=== PATIENT | male | born 1990 | race Caucasian/White ===

== ENCOUNTER 2017-12-19 05:25 | Observation (INO) ==
[2017-12-19] MEDS ORDERED: MORPHINE SUL Oral CONC 10 MG/0.5 ML ORAL.SYG SL PRN (07:52)
[2017-12-19] MEDS ORDERED: Ondansetron 4 MG/2 ML VIAL IVP PRN (07:52)
[2017-12-19] MEDS: Pantoprazole 40 MG VIAL IVP SCH (09:06)
[2017-12-19] MEDS: *HR* LORazepam 2 MG/ML VIAL IVP PRN ×2 (09:06→17:31)
[2017-12-19] MEDS: 0.9 % Sodium Chloride 1,000 ML IVC SCH ×3 (09:06→20:51)
[2017-12-19] MEDS: Loratadine 10 MG TABLET PO SCH (09:28)
[2017-12-19] MEDS: Albuterol 2.5 MG/3 ML NEBULIZER IH PRN (09:43)
--- NOTE | 2017-12-19 09:50 | General Surg History&Physical ---
<CesarEnio R - Last Filed: 12/19/17 15:11> Date of Encounter: 12/19/17 Time of Encounter: 07:40 Assessment and Plan (1) Cholelithiasis Current Visit: Yes Status: Acute The assessment and plan as outlined above was discussed with the patient and/or family members who expressed understanding and agreement. All questions were answered. CT shows minimal pericholecystic fat stranding and suspected gallstone, no evidence of obstruction, trace fluid in pelvis, suggestive of cholecystitis RUQ pain present. No fevers or leukocytosis PLAN: Clear liquid diet - NPO at midnight IV fluids and symptom control GI and DVT prophylaxis AM labs Reassess in AM for possible laparoscopic cholecystectomy Qualifiers: Cholelithiasis location: gallbladder Cholecystitis presence: without cholecystitis Biliary obstruction: without biliary obstruction Qualified Code(s): K80.20 - Calculus of gallbladder without cholecystitis without obstruction (2) GERD (gastroesophageal reflux disease) Current Visit: Yes Status: Acute GI prophylaxis with protonix Qualifiers: Esophagitis presence: esophagitis presence not specified Qualified Code(s) : K21.9 - Gastro-esophageal reflux disease without esophagitis (3) Allergic rhinitis Current Visit: Yes Status: Acute Continue home meds Qualifiers: Allergic rhinitis trigger: unspecified Allergic rhinitis seasonality: unspecified seasonality Qualified Code(s): J30.9 - Allergic rhinitis, unspecified (4) DVT prophylaxis Current Visit: Yes Status: Acute Subq heparin History of Present Illness Chief complaint: RUQ pain HPI: Mr. Bourgeois is a 27 year old male with PMH of anxiety, GERD, allergies, and biliary colic, presented to [facility] with acute onset of severe, stabbing and crampy , RUQ pain radiating to the epigastrum. Associated symptoms include nausea, vomiting, chills, and diarrhea. He reports that he's had "gallbladder attacks" for the past 12 years, and his symptoms are usually worse with food. He denies fevers, skin rash, itching, chest pain, dyspnea, hematochezia, melena, or dysuria. He reports a 10 pack year history of tobacco use. Denies alcohol or other drug use. Past Med Surg Social Fam HX - Past Medical History Medical history: asthma, GERD, hypertension Psychiatric history: no psych history - Past Surgical History Additional surgical history: 2 x left knee - Social History Smoking Status: Current some day smoker Smokeless Tobacco Status: No Alcohol use: recent Drug use: none Medications and Allergies Meloxicam [Mobic] 7.5 mg PO BID #14 tablet 10/12/17 [Rx] BuPROPion [Wellbutrin] 150 mg PO BID 12/19/17 [History] Buspirone HCl [Buspar] 5 mg PO BID 12/19/17 [History] Cetirizine HCl [Zyrtec] 10 mg PO DAILY 12/19/17 [History] Fluticasone/Vilanterol [Breo Ellipta 100-25 Mcg INH] 1 each IH QAM 12/19/17 [ History] Montelukast [Singulair] 10 mg PO DAILY 12/19/17 [History] Omeprazole [PriLOSEC] 1 tab PO QAM 12/19/17 [History] 3 Allergy/AdvReac Type Severity Reaction Status Date / Time No Known Allergies Allergy Verified 05/15/16 00:35 Review of Systems All systems PM: reviewed and no additional remarkable complaints except as stated All systems PM: The remainder of the systems were reviewed and are negative General Surgery Exam Initial Vital Signs Temp Pulse Resp BP Pulse Ox 98.0 F 84 16 138/88 96 12/19/17 06:17 12/19/17 06:17 12/19/17 06:17 12/19/17 06:17 12/19/17 06:17 - General physical appearance well developed, well nourished, no distress - Respiratory normal expansion, normal respiratory effort wheezing: bilateral (mild - reports he has been out of his medications for a few days) - Cardiovascular Cardiovascular exam: Present: RRR, no murmurs/rubs/gallops - Abdomen Abdomen general surgery: Present: bowel sounds present, soft, tender, guarding. Absent: distended, rebound, rigid Abdominal Tenderness: Present: epigastic, RUQ, LLQ - Integumentary Integumentary general surgery: Present: warm and dry, no abnormal pigmentation - Neurologic Present: CN 2-12 grossly intact, normal coordination - Psychiatric Psychiatric general surgery: Present: A&Ox3, appropriate, speech is normal, memory intact Results - Labs All other labs normal. <Jung Butler - Last Filed: 12/20/17 06:55> Date of Encounter: 06/11/18 History of Present Illness HPI: Mr. Bourgeois is a 27 year old male Review of Systems All systems PM: The remainder of the systems were reviewed and are negative General Surgery Exam Initial Vital Signs Temp Pulse Resp BP Pulse Ox 98.0 F 84 16 138/88 96 12/19/17 06:17 18 06:17 12/19/17 06:17 12/19/17 06:17 12/19/17 06:17 Results - Labs 12/20/17 04:20 12/20/17 04:20 Abnormal lab results MPV 8.3 fL (9.4-12.4) L 12/20/17 04:20 PT 12.6 Seconds (9.4-12.1) H 12/20/17 04:20 Chloride 110 mEq/L (98-107) H 12/20/17 04:20 Serum Total Protein 5.9 g/dL (6.4-8.9) L 12/20/17 04:20 Globulin 2.0 g/dL (2.4-3.5) L 12/20/17 04:20 Diabetes panel 12/20/17 Range/Units 04:20 Sodium 140 (136-145) mEq/L Potassium 4.0 (3.5-5.1) mEq/L Chloride 110 H (98-107) mEq/L Carbon Dioxide 25 (23-29) mEq/L BUN 10 (6-20) mg/dL Creatinine 0.94 (0.70-1.30) mg/dL Glucose 97 (70-105) mg/dL Calcium 9.0 (8.6-10.3) mg/dL AST 20 (13-39) Units/L ALT 35 (7-52) Units/L Alkaline Phosphatase 47 (34-104) Units/L Albumin 3.9 (3.5-5.7) g/dL Calcium panel 12/20/17 Range/Units 04:20 Calcium 9.0 (8.6-10.3) mg/dL Albumin 3.9 (3.5-5.7) g/dL Pituitary panel 12/20/17 Range/Units 04:20 Sodium 140 (136-145) mEq/L Potassium 4.0 (3.5-5.1) mEq/L Chloride 110 H (98-107) mEq/L Carbon Dioxide 25 (23-29) mEq/L BUN 10 (6-20) mg/dL Creatinine 0.94 (0.70-1.30) mg/dL Glucose 97 (70-105) mg/dL Calcium 9.0 (8.6-10.3) mg/dL Adrenal panel 12/20/17 Range/Units 04:20 Sodium 140 (136-145) mEq/L Potassium 4.0 (3.5-5.1) mEq/L Chloride 110 H (98-107) mEq/L Carbon Dioxide 25 (23-29) mEq/L BUN 10 (6-20) mg/dL Creatinine 0.94 (0.70-1.30) mg/dL Glucose 97 (70-105) mg/dL Calcium 9.0 (8.6-10.3) mg/dL Total Bilirubin 0.6 (0.3-1.0) mg/dL AST 20 (13-39) Units/L ALT 35 (7-52) Units/L Alkaline Phosphatase 47 (34-104) Units/L Albumin 3.9 (3.5-5.7) g/dL All other labs normal. - Attending Attestation I examined this patient and my medical decision-making was reviewed with the Resident Physician. I agree with the documented findings, disposition and treatment plan as described except to the extent set forth below. I reviewed the above assessment and evaluation and agree with the above plan. Patient has had a 10-12 year history of episodic right upper quadrant pain. The the past 3-4 years pain is worsened and it 2 or 3 AM the pain woke him up and has been persistent since that time. He denies any vomiting but admits to nausea. Pain is a sharp stabbing type pain. Mild tenderness to palpation right upper quadrant. No masses palpated. I do think his symptoms are consistent with acute cholecystitis and we will plan for laparoscopic cholecystectomy within the next 24 hours.
[2017-12-19] MEDS: Nicotine 21 MG PATCH.TD24 TD SCH (11:52)
[2017-12-19] MEDS: Ketorolac 30 MG/ML VIAL IVP SCH ×3 (11:52→23:41)
[2017-12-19] MEDS: *HR* Heparin 5,000 UNIT/ML VIAL SQ SCH (16:54)
[2017-12-19] MEDS: *HR* OxyCODONE/APAP 7.5/325 TABLET PO PRN (17:31)
[2017-12-19] MEDS ORDERED: Melatonin 3 MG TABLET PO PRN (17:35)
--- NOTE | 2017-12-19 21:08 | Anesthesia Evaluation PreOp ---
Date of Encounter: 12/19/17 Time of Encounter: 21:05 - Past History Planned Operation: Lap cholecystectomy Cardiac History: Denies any Significant Hx Pulmonary History: Smoker, Asthma SALES ASSISTANT DISPLAYS History: Denies Any Significant HX Other Medical History: GERD Anesthesia History: Past Anesthesia (knee x2), Problems (PONV) Alcohol Use: recent Drug use: none Medications and Allergies Meloxicam [Mobic] 7.5 mg PO BID #14 tablet 10/12/17 [Rx] BuPROPion [Wellbutrin] 150 mg PO BID 12/19/17 [History] Buspirone HCl [Buspar] 5 mg PO BID 12/19/17 [History] Cetirizine HCl [Zyrtec] 10 mg PO DAILY 12/19/17 [History] Fluticasone/Vilanterol [Breo Ellipta 100-25 Mcg INH] 1 each IH QAM 12/19/17 [ History] Montelukast [Singulair] 10 mg PO DAILY 12/19/17 [History] Omeprazole [PriLOSEC] 1 tab PO QAM 12/19/17 [History] 3 Allergy/AdvReac Type Severity Reaction Status Date / Time No Known Allergies Allergy Verified 05/15/16 00:35 - Meds/Allergy Pre-op Review Medications Reviewed: Yes Allergies Reviewed: Yes Beta Blockers on Current Med List: No Anesthesia Results - Labs Laboratory Tests 10/12/17 12/19/17 12/19/17 09:30 03:33 03:33 WBC 7.1 Hgb 14.8 Hct 41.4 Plt Count 372 PT 10.4 INR 1.0 APTT 29.4 Sodium 141 Potassium 3.8 Chloride 108 H Carbon Dioxide 26 BUN 11 Creatinine 1.14 Est GFR ( Amer) > 60 Glucose 115 H Anesthesia Exam Vital Signs/O2 Sat, Most Current Temp Pulse Resp BP Pulse Ox 97.5 F L 90 15 144/97 97 12/19/17 18:46 12/19/17 18:46 12/19/17 18:46 12/19/17 18:46 12/19/17 18:46 Weight: 131kg - HEENT Pupil (Motor): Pupils equal, EOMI Mallampati: III Teeth: Poor dentition Oral Opening: Greater than 3 - SALES ASSISTANT DISPLAYS LOC: Oriented SALES ASSISTANT DISPLAYS Motor: Normal RUE, Normal LUE, Normal RLE, Normal LLE, Normal Face SALES ASSISTANT DISPLAYS Sensory: Normal: RUE, LUE, RLE, LLE, Face - Cardiac Rhythm: Regular - Pulmonary Breath Sounds: bilateral Clear Respiratory Effort: Symmetrical Anesthesia Assess/Plan ASA Score: 3 Modified Blaire Scale for Level of Consciousness: Cooperative, oriented, and tranquil Anesthetic Plan: General Monitoring Plan: Standard Monitors Recovery Plan: PACU
[2017-12-20 04:52] LABS: Basophils # 0.1 K/mcL (0.0-0.2); Basophils % 0.7 %; Eosinophils # 0.2 K/mcL (0.0-0.6); Eosinophils % 2.9 %; Hematocrit 39.7 % (37.5-50.1); Hemoglobin 13.9 g/dL (12.9-16.9); Immature Granulocytes % 0.3 % (0-4); Lymphocytes % 26.8 %; Mean Corpuscular Volume 88.4 fL (83.0-100.0); Mean Platelet Volume 8.3 fL (9.4-12.4); Monocytes # 0.5 K/mcL (0.0-1.3); Monocytes % 6.7 %; Neutrophils # 4.6 K/mcL (1.6-8.9); Platelet Count 322 K/mcL (140-400); Red Blood Count 4.49 M/mcL (4.19-5.50); Red Cell Distribution Width 11.9 % (11.5-14.5); Segmented Neutrophils % 62.6 %
[2017-12-20 04:59] LABS: INR 1.2; Prothrombin Time 12.6 Seconds (9.4-12.1)
[2017-12-20 05:09] LABS: Alanine Aminotransferase 35 Units/L (7-52); Albumin 3.9 g/dL (3.5-5.7); Alkaline Phosphatase 47 Units/L (34-104); Aspartate Amino Transferase 20 Units/L (13-39); BUN/Creatinine Ratio 11 (6-26); Bilirubin,Direct 0.1 mg/dL (0.0-0.2); Bilirubin,Indirect 0.5 mg/dL (0.0-1.2); Bilirubin,Total 0.6 mg/dL (0.3-1.0); Blood Urea Nitrogen 10 mg/dL (6-20); Carbon Dioxide 25 mEq/L (23-29); Chloride 110 mEq/L (98-107); Glucose 97 mg/dL (70-105); Osmolality,Calculated 289 (280-300); Sodium 140 mEq/L (136-145); Total Protein 5.9 g/dL (6.4-8.9); eGFR For African Americans > 60 (> 60); eGFR For Non-African Americans > 60 (> 60)
[2017-12-20] MEDS: Ketorolac 30 MG/ML VIAL IVP SCH ×2 (06:10→11:15)
[2017-12-20] MEDS: *HR* Heparin 5,000 UNIT/ML VIAL SQ SCH (06:11)
[2017-12-20] MEDS: 0.9 % Sodium Chloride 1,000 ML IVC SCH (07:34)
[2017-12-20] MEDS: Loratadine 10 MG TABLET PO SCH (08:28)
[2017-12-20] MEDS: Nicotine 21 MG PATCH.TD24 TD SCH (08:30)
[2017-12-20] MEDS: Pantoprazole 40 MG VIAL IVP SCH (08:31)
[2017-12-20] MEDS: *HR* LORazepam 2 MG/ML VIAL IVP PRN (10:01)
[2017-12-20] MEDS: *HR* OxyCODONE/APAP 7.5/325 TABLET PO PRN (10:38)
[2017-12-20] MEDS: Albuterol 2.5 MG/3 ML NEBULIZER IH PRN (13:25)
[2017-12-20] MEDS ORDERED: Bupivacaine/EPI 1:200k 0.5%PF 10 ML VIAL ONE (14:39)
[2017-12-20] MEDS ORDERED: cefOXitin 2,000 MG in Water for inj. (sterile) 20 ML 20 ML IVP ONE (14:49)
[2017-12-20] MEDS ORDERED: Scopolamine Patch 1.5 MG PATCH.TD72 ONE (14:59)
[2017-12-20] MEDS ORDERED: Ondansetron 4 MG/2 ML VIAL ONE (15:01)
[2017-12-20] MEDS ORDERED: *HR* Propofol 200 MG/20 ML VIAL IVP ONE (15:01)
[2017-12-20] MEDS ORDERED: *HR* FentaNYL (PF) 100 MCG/2 ML VIAL ONE ×2 (15:01→15:32)
[2017-12-20] MEDS ORDERED: *HR* Succinylcholine 200 MG/10 ML VIAL IVP ONE (15:01)
[2017-12-20] MEDS ORDERED: *HR* Midazolam HCl 2 MG/2 ML VIAL ONE (15:01)
[2017-12-20] MEDS ORDERED: Neostigmine Methylsulfate 3 MG/3 ML SYRINGE ONE ×2 (15:01→15:26)
[2017-12-20] MEDS ORDERED: Dexamethasone 4 MG/ML VIAL ONE (15:01)
[2017-12-20] MEDS ORDERED: *HR* Rocuronium Bromide 50 MG/5 ML VIAL ONE (15:01)
[2017-12-20] MEDS ORDERED: Lidocaine -MPF 4% 5 ML AMPUL ONE (15:01)
[2017-12-20] MEDS ORDERED: CefOXitin 2,000 MG VIAL ONE (15:35)
[2017-12-20] MEDS ORDERED: *HR* OxyCODONE Immed Rel 5 MG TABLET PO PRN (15:38)
[2017-12-20] MEDS ORDERED: *HR* Meperidine 25 MG/ML SYRINGE IVP PRN (15:38)
[2017-12-20] MEDS ORDERED: Ondansetron 4 MG/2 ML VIAL IVP PRN ×2 (15:38→17:03)
[2017-12-20] MEDS ORDERED: *HR* FentaNYL (PF) 100 MCG/2 ML VIAL IVP PRN (15:38)
[2017-12-20] MEDS ORDERED: Nicotine 2 MG GUM BC PRN ×2 (15:42→17:03)
--- NOTE | 2017-12-20 16:01 | Operative Note ---
Date of procedure: 12/20/17 Pre-op diagnosis: Acute cholecystitis Post-op diagnosis: same Procedure: Laparoscopic cholecystectomy Anesthesia: GETA Surgeon: Jung Butler Was there an collections assistant present: Yes Manager Estate: Karina Ríos Estimated blood loss (cc): 5 Specimen: gallbladder and contents Condition: stable Disposition: PACU Procedure in Detail: Date of surgery: 12/20/17 After properly identifying the patient, the patient was brought to the operating room placed in the supine position. After proper IV sedation was achieved followed by general endotracheal intubation, the patient's abdomen was prepped and draped in normal sterile fashion. A timeout was performed noting the patient's name and type of procedure to be performed. Half percent Marcaine solution was used to infiltrate the epidermal and dermal layer just above the level of the umbilicus. An 11 blade scalpel was used to make an incision in this area down to the level of the rectus fascia which was also incised. A 12 mm port was placed to the incision and a laparoscopic camera was placed through the port which showed no injury to the intra- abdominal organs upon entry. The abdomen was insufflated with carbon dioxide and the subxiphoid region and the right upper quadrant region was examined and half percent Marcaine solution was used to infiltrate these areas followed by placement of a 5 mm port under direct camera visualization. The patient was placed in a reverse Trendelenburg position and the gallbladder was identified and noted to be somewhat distended and erythematous consistent with acute cholecystitis. The peritoneal covering overlying the cystic duct and cystic artery were then bluntly dissected away with a [place] dissector. The cystic duct and cystic artery were then further isolated, clipped with laparoscopic clips, and incised laparoscopic scissors. The gallbladder was carefully dissected from the gallbladder fossa with Bovie cauterization while Bovie cauterization was used to maintain hemostasis. The gallbladder was removed from the abdomen via an Endobag and reinspection of the right upper quadrant demonstrated maintenance of hemostasis. The right upper quadrant was briefly irrigated with normal saline solution and then all ports were removed from the abdomen after the abdomen was desufflated. The rectus fascia for the supraumbilical incision was reapproximated with a [id number] 0 Vicryl suture. The subcutaneous tissue was reapproximated with a 3-0 Vicryl suture and the epidermal and dermal layers for the remaining incisions were closed with 4-0 Monocryl sutures. Needle, sponge, and instrument counts were correct 2 and the incisions were covered with Steri- Strips and Band-Aids. The patient was aroused from IV sedation, extubated in the operating room without complication, and transported to the recovery room in stable condition.
--- NOTE | 2017-12-20 16:23 | Discharge Summary ---
- NOTES TO OUTPATIENT PROVIDER Notes to Outpatient Provider: s/p laparoscopic cholecystectomy Orders not resulted at time of discharge: Pending orders 12/20/17 15:43 Surgical Pathology [PTH] Routine Date of Encounter: 12/20/17 Time of Encounter: 17:24 - Discharge Diagnosis (1) Cholelithiasis Priority: Primary Status: Acute Qualifiers: Cholelithiasis location: gallbladder Cholecystitis presence: without cholecystitis Biliary obstruction: without biliary obstruction Qualified Code(s): K80.20 - Calculus of gallbladder without cholecystitis without obstruction (2) GERD (gastroesophageal reflux disease) Priority: Secondary Status: Acute Qualifiers: Esophagitis presence: esophagitis presence not specified Qualified Code(s) : K21.9 - Gastro-esophageal reflux disease without esophagitis (3) Allergic rhinitis Priority: Secondary Status: Acute Qualifiers: Allergic rhinitis trigger: unspecified Allergic rhinitis seasonality: unspecified seasonality Qualified Code(s): J30.9 - Allergic rhinitis, unspecified (4) DVT prophylaxis Priority: Secondary Status: Acute General Surgery Exam Initial Vital Signs Temp Pulse Resp BP Pulse Ox 98.0 F 84 16 138/88 96 12/19/17 06:17 12/19/17 06:17 12/19/17 06:17 12/19/17 06:17 12/19/17 06:17 - General physical appearance well developed, well nourished, no distress - Respiratory normal expansion, normal respiratory effort, clear to auscultation - Cardiovascular Cardiovascular exam: Present: RRR, no murmurs/rubs/gallops - Abdomen Abdomen general surgery: Present: bowel sounds present, soft, tender ( appropriately tender) - Incision Incision: Present: clean and dry, intact - Neurologic Present: CN 2-12 grossly intact, normal coordination - Psychiatric Psychiatric general surgery: Present: A&Ox3, appropriate, speech is normal, memory intact - Hospital Course Hospital course: Mr. Bourgeois is a 27 year old male with PMH of anxiety, GERD, allergies, and biliary colic, presented to [facility] with acute onset of severe, stabbing and crampy , RUQ pain radiating to the epigastrum. Associated symptoms include nausea, vomiting, chills, and diarrhea. He reports that he's had "gallbladder attacks" for the past 12 years, and his symptoms are usually worse with food. Diagnosed with Cholelithasis, without acute cholecystitis. He was taken to the OR for a laparoscopic cholecystectomy. Final pathology is pending. He can be discharged home with follow-up on January 06 at 8AM. - Time Spent with Patient Total time spent providing and/or coordinating discharge services: Greater than 30 minutes - Discharge Medications Prescriptions: Ondansetron ODT [Zofran ODT] 4 mg SL Q6HR #15 tab.rapdis OxyCODONE/APAP 7.5/325 [Percocet 7.5/325 MG] 1 each PO Q6HR PRN 7 Days #26 tablet PRN Reason: Pain Docusate Sodium [Colace] 100 mg PO BID #30 capsule Ibuprofen [Ibu] 800 mg PO TID #42 tablet Home Medications: Meloxicam [Mobic] 7.5 mg PO BID #14 tablet 10/12/17 [Rx] BuPROPion [Wellbutrin] 150 mg PO BID 12/19/17 [History] Buspirone HCl [Buspar] 5 mg PO BID 12/19/17 [History] Cetirizine HCl [Zyrtec] 10 mg PO DAILY 12/19/17 [History] Fluticasone/Vilanterol [Breo Ellipta 100-25 Mcg INH] 1 each IH QAM 12/19/17 [ History] Montelukast [Singulair] 10 mg PO DAILY 12/19/17 [History] Omeprazole [PriLOSEC] 1 tab PO QAM 12/19/17 [History] Docusate Sodium [Colace] 100 mg PO BID #30 capsule 12/20/17 [Rx] Ibuprofen [Ibu] 800 mg PO TID #42 tablet 12/20/17 [Rx] Ondansetron ODT [Zofran ODT] 4 mg SL Q6HR #15 tab.rapdis 12/20/17 [Rx] OxyCODONE/APAP 7.5/325 [Percocet 7.5/325 MG] 1 each PO Q6HR PRN 7 Days #26 tablet 12/20/17 [Rx] Allergies/Adverse Reactions: 3 Allergy/AdvReac Type Severity Reaction Status Date / Time No Known Allergies Allergy Verified 05/15/16 00:35 Date of admission: 12/19/17 06:11 Primary care physician: Fernando Marion CNP Discharging clinician: Enio Guerrero Anticipated date of discharge: 12/20/17 Procedures and tests throughout hospitalization: Date of procedure: 12/20/17 Pre-op diagnosis: Acute cholecystitis Post-op diagnosis: same Procedure: Laparoscopic cholecystectomy Anesthesia: GETA Surgeon: Jung Butler Was there an loan assistant present: Yes Warranty Manager: Karina Ríos Estimated blood loss (cc): 5 Specimen: gallbladder and contents Labs on day of discharge: Labs from last 24 hours 12/20/17 12/20/17 12/20/17 05:33 04:20 04:20 WBC RBC Hgb Hct MCV MCH MCHC RDW Plt Count MPV Immature Gran % Seg Neutrophils % Lymphocytes % Monocytes % Eosinophils % Basophils % Neutrophils # Lymphocytes # Monocytes # Eosinophils # Basophils # PT 12.6 H INR 1.2 Sodium 140 Potassium 4.0 Chloride 110 H Carbon Dioxide 25 BUN 10 Creatinine 0.94 Est GFR ( Amer) > 60 Est GFR (Non-Af Amer) > 60 BUN/Creatinine Ratio 11 Glucose 97 POC Glucose 88 Calculated Osmolality 289 Calcium 9.0 Total Bilirubin 0.6 Direct Bilirubin 0.1 Indirect Bilirubin 0.5 AST 20 ALT 35 Alkaline Phosphatase 47 Serum Total Protein 5.9 L Albumin 3.9 Globulin 2.0 L Albumin/Globulin Ratio 2.0 12/20/17 04:20 WBC 7.3 RBC 4.49 Hgb 13.9 Hct 39.7 MCV 88.4 MCH 31.0 MCHC 35.0 RDW 11.9 Plt Count 322 MPV 8.3 L Immature Gran % 0.3 Seg Neutrophils % 62.6 Lymphocytes % 26.8 Monocytes % 6.7 Eosinophils % 2.9 Basophils % 0.7 Neutrophils # 4.6 Lymphocytes # 2.0 Monocytes # 0.5 Eosinophils # 0.2 Basophils # 0.1 PT INR Sodium Potassium Chloride Carbon Dioxide BUN Creatinine Est GFR ( Amer) Est GFR (Non-Af Amer) BUN/Creatinine Ratio Glucose POC Glucose Calculated Osmolality Calcium Total Bilirubin Direct Bilirubin Indirect Bilirubin AST ALT Alkaline Phosphatase Serum Total Protein Albumin Globulin Albumin/Globulin Ratio - Patient Status Disposition: Home, Self-Care Condition: Fair Functional capacity at discharge: independent ambulation Overall status at discharge: patient is progressing back to baseline - Discharge Instructions Follow Up With: Fernando Marion CNP [Primary Care Provider] - Chelsie Melgar CNP [Advanced Practice Nurse] - (January 06, 2018 at 8AM) Additional Instructions: General Surgical Discharge Instructions 1. No pushing, pulling, or lifting greater than 15 lbs for 2 weeks. 2. You may remove band-aids and shower beginning tomorrow, but no tub baths, soaking, or swimming for 2 weeks. 3. You may resume driving when you are off narcotics and are safe to react in a car. 4. Take ibuprofen every 8 hours for discomfort. Do not take both Mobic ( meloxicam) and Ibuprofen together. - If this does not relieve discomfort, you may take the as needed Percocet. Take narcotics as directed. Do not take more narcotics then directed and do not share your narcotics with any other person. Do not drink alcohol while on narcotics. 5. Take stool softeners (Colace) or a water based laxative (Miralax) while taking narcotics. You may hold for loose stools. 6. Report any fevers greater than 100.5F, increase abdominal discomfort, drainage that looks like pus, increased redness or pain at the surgical site, or any vomiting. 7. Report any pain in the calves, shortness of breath, or rapid heartbeat. 8. Follow-up in the office as directed: January 06, 2018 at 8AM - Diet and Activity Activity: increase activity as tolerated Diet: advance to your usual diet
[2017-12-20] MEDS ORDERED: Albuterol 2.5 MG/3 ML NEBULIZER IH PRN (17:03)
[2017-12-20] MEDS ORDERED: 0.9 % Sodium Chloride 1,000 ML IVC SCH (17:03)
[2017-12-20] MEDS ORDERED: *HR* LORazepam 2 MG/ML VIAL IVP PRN (17:03)
[2017-12-20] MEDS ORDERED: MORPHINE SUL Oral CONC 10 MG/0.5 ML ORAL.SYG SL PRN (17:03)
[2017-12-20] MEDS ORDERED: Melatonin 3 MG TABLET PO PRN (17:03)
[2017-12-20] MEDS ORDERED: Ketorolac 30 MG/ML VIAL IVP SCH (18:00)
[2017-12-20 20:21] VITALS: BP 130/91
[2017-12-21] MEDS ORDERED: Loratadine 10 MG TABLET PO SCH (09:00)
[2017-12-21] MEDS ORDERED: *HR* Heparin 5,000 UNIT/ML VIAL SQ SCH (18:00)
== END 2017-12-20 20:22 | disposition home or self-care (01) ==
LOC: 3ANU
PROVIDERS: ADMIT Family Medicine; ATTEND Surgery